=== PATIENT | female | born 1975 | race Caucasian/White ===

== ENCOUNTER 2016-11-14 20:45 | Emergency (ER) | payer OTHER ==
[~2016-11-14] VITALS: Ht 172.7 cm; Wt 112.9 kg
[~2016-11-14 20:45] MED LIST: CARAFATE1 G1 PO; GUAFENESIN400 MG PO; KETOCONAZOLE15 GM TOP; MEDROL DOSEPAK1 PAC PO; MUCINEX600 M1 PO; NASONEX0.05 MG/Ac NAS; PREDNISONE20 M1 PO; PROVENTIL HFA6.7 GM INH; TESSALON PERLE100 MG PO; TRAMADOL50 MG PO; VIBRAMYCIN100 MG PO
[2016-11-14 21:15] VITALS: BP 119/79
[2016-11-14 21:19] LABS: ABSOLUTE BASOPHIL COUNT 0 /CUMM (0.0-0.2); ABSOLUTE EOSINOPHIL COUNT 0.1 /CUMM (0.0-0.7); ABSOLUTE LYMPH COUNT 2.8 /CUMM (1.2-3.4); ABSOLUTE MONOCYTE COUNT 0.7 /CUMM (0.10-0.60); BASOPHIL % 0.3 % (0.0-2.0); EOSINOPHIL % 1.4 % (0-5); GRANULOCYTE % 57.9 % (42.2-75.2); HEMATOCRIT 40.3 % (37-47); MEAN CORPUSCULAR HGB 29.8 PG (27.0-31.0); MEAN CORPUSCULAR HGB CONC 33.3 G/DL (33.0-37.0); MEAN CORPUSCULAR VOLUME 89.3 FL (81.0-99.0); MEAN PLATELET VOLUME 8.1 FL (7.4-10.4); PLATELET COUNT 201 /CUMM (130-400); RBC DISTRIBUTION WIDTH 13.4 % (11.5-14.5); RED BLOOD CELL CT 4.51 /CUMM (4.20-5.40); WHITE BLOOD CELL COUNT 8.7 /CUMM (4.8-10.8)
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
--- NOTE | 2016-11-14 23:08 | RADIOLOGY REPORT ---
EXAMINATION: XR LUMBOSACRAL SPINE CLINICAL INFORMATION: Lower back pain following fall 2 weeks ago. Persistent right-sided paralumbar pain. COMPARISON: None. TECHNIQUE: AP and lateral views of the lumbar spine as well as AP and lateral views of the lumbosacral junction. FINDINGS: There are 5 nonrib-bearing lumbar vertebral bodies. There is moderate to severe multilevel degenerative disc disease and facet arthrosis of the lumbar spine without visible lumbar spine fracture or subluxation. Degenerative changes are most significant at L4-L5 and L5-S1. Lumbar spine alignment appears grossly maintained. IMPRESSION: No visible lumbar spine fracture or subluxation. Lumbar spine alignment appears grossly maintained. There is moderate to severe degenerative disc disease and facet arthrosis of the lumbar spine. If clinical symptoms persist, consider correlation with a dedicated CT of the lumbar spine.
[2016-11-14] MEDS ORDERED: CYCLOBENZAPRINE10 M1 PO (23:23)
[2016-11-14] MEDS ORDERED: IBUPROFEN800 M1 PO (23:23)
[2016-11-14] MEDS ORDERED: MEDROL4 M2 PO (23:23)
== END 2016-11-14 23:33 ==
LOC: ERH 20:45
PROVIDERS: Emergency Medicine
DX: M54.5 Low back pain (principal)
CPT/HCPCS: 72110; 81003; 81025; 93005; 93010; 96372; J1885

== ENCOUNTER 2018-04-17 09:19 | Emergency (ER) | payer OTHER ==
[~2018-04-17 09:19] MED LIST changes: +BACLOFEN10 M1 PO; +CHERATUSSIN AC118 M1 PO; +CYCLOBENZAPRINE10 M1 PO; +DIFLUCAN200 M1 PO; +IBUPROFEN600 M1 PO; +IBUPROFEN800 M1 PO; +MEDROL4 M2 PO; +MOBIC15 M1 PO; +VICODIN 5-3001 EACH PO; +ZITHROMAX250 M2 PO
[2018-04-17 09:22] VITALS: BP 140/88
--- NOTE | 2018-04-17 10:39 | ED INFLUENZA/URI COMPLAINT ---
History of Present Illness General Chief Complaint: Upper Respiratory Sx/Fever Stated Complaint: URI Source: patient Exam Limitations: no limitations Vital Signs & Intake/Output Vital Signs & Intake/Output Vital Signs Date Time Temp Pulse Resp B/P B/P Pulse O2 O2 Flow FiO2 Mean Ox Delivery Rate 04/17 1118 98 Room Air 04/17 1100 98 04/17 0922 97.8 88 18 140/88 95 Room Air Allergies Coded Allergies: Penicillins (Severe, anaphylaxis 02/07/18) levofloxacin (From LEVAQUIN) (Severe, RASH 02/07/18) moxifloxacin (From AVELOX) (Severe, RASH 02/07/18) promethazine (From PHENERGAN) (Severe, APHASIA 02/07/18) Reconcile Medications Albuterol Sulfate (Proventil Hfa) 90 MCG HFA.AER.AD 2 PUF INH Q4 cough Azithromycin (Zithromax) 250 MG TABLET 1 DP PO AD OTHER 2 the first day followed by 1 for days 2-5 Baclofen 10 MG TABLET 1 TAB PO TIDPRN PRN muscle spasm/strain Benzonatate 200 MG CAPSULE 1 CAP PO TIDPRN cough Codeine Phosphate/Guaifenesi (Cheratussin AC Syrup) 10 MG-100 MG/5 ML LIQUID 5 -10 ML PO Q6 PRN COUGH Cyclobenzaprine HCl 10 MG TABLET 1 TAB PO QPM PRN SPASM DO NOT DRIVE WITH THIS MEDICATION Doxycycline Hyclate 100 MG CAPSULE 1 CAP PO BID bronchitis Doxycycline Hyclate (Vibramycin) 100 MG CAPSULE 1 CAP PO BID cellulitis Fluconazole (Diflucan) 200 MG TABLET 1 TAB PO DAILY candidiasis Start after completion of antibiotics Hydrocodone/Acetaminophen (Vicodin 5-300 MG Tablet) 5 MG-300 MG TABLET 1 TAB PO BID PRN BREAKTHROUGH PAIN Ibuprofen 600 MG TABLET 1 TAB PO Q6P PRN pain with food Meloxicam (Mobic) 15 MG TABLET 1 TAB PO DAILY PRN PAIN Methylprednisolone. (Medrol) 4 MG TAB.DS.PK 1 DP PO AD INFLAMMATION 6 on day 1 then reduce by one tablet daily until gone Triage Note: PT TO ED WITH URI. STATES THAT SHE IS HAVING CONGESTION AND COUGH WITH GREEN AND WHITE MUCUS. DENIES ANY CP, DENIES ANY SOB. FEELS PRESSURE IN HER HEAD WELL. HX OF HYSTERECTOMY. Triage Nurses Notes Reviewed? yes Onset: Abrupt Duration: day(s): : No Patient currently breastfeeds: No HPI: Pt is a 43 y/o F PMHx asthma presenting with postnasal drip and a cough x 3 days. Pt states symptoms started 3 days ago with nasal congestion, headache, sore throat. Pt took zyrtec with some relief. Pt states that last night a cough started that is productive of phlegm. Pt has been using her albutorol inhaler frequently since. Pt states that she has been smoking 1/2 PPD since she was an adolescent. Pt admits to SOB, denies fevers, chills, diaphoresis, cp, dizziness. (Greg Dueñas) Past History Travel History Traveled to [place] past 21 day No Medical History Any Pertinent Medical History? 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 No (Greg Dueñas) Review of Systems Review of Systems Constitutional: Denies: see HPI. EENTM: Reports: see HPI. Respiratory: Reports: see HPI. Cardiovascular: Denies: see HPI. GI: Reports: no symptoms. Genitourinary: Reports: no symptoms. Musculoskeletal: Reports: no symptoms. Skin: Reports: no symptoms. Neurological/Psychological: Reports: no symptoms. Hematologic/Endocrine: Reports: no symptoms. Immunologic/Allergic: Reports: no symptoms. All Other Systems: Reviewed and Negative (Greg Dueñas) Physical Exam Physical Exam General Appearance: well developed/nourished, no apparent distress, alert, awake Head: atraumatic, normal appearance Eyes: Bilateral: PERRL, other (scleral injection, lacrimation). Ears, Nose, Throat: moist mucous membrane, Tympanic normal Neck: normal inspection, supple, full range of motion, No LAD Respiratory: no respiratory distress, quiet respiration, decreased breath sounds Cardiovascular: regular rate/rhythm, NMRG Extremities: normal range of motion Neurologic/Psych: awake, alert Skin: intact, normal color, warm/dry Core Measures Sepsis Present: No Sepsis Focused Exam Completed? Yes (Greg Dueñas) Progress Differential Diagnosis: pneumonia, pharyngitis, sinusitis, Bronchitis Plan of Care: Orders Procedure Date/time Status AEROSOL (GEN) 04/17 110 Complete Initial ED EKG: none (Greg Dueñas) Departure Departure Disposition: HOME OR SELF CARE Condition: Stable Clinical Impression Primary Impression: Bronchitis Referrals: Jamie SUAREZ,Petar Marshall (PCP/Family) Additional Instructions: Taking doxycycline, albuterol, Tessalon Perles as prescribed. Follow-up with her PCP. Return if any other concerns worsening symptoms. Please go over all results of today's visit with your primary care doctor. Contact your primary care doctor to let them know you were here in the emergency room. There may be nonspecific findings which may not be related to your visit today here in the emergency room but may require further evaluation and chronic monitoring by your primary care doctor. If you had a laceration today the chance of foreign body always remains. You should follow-up with your primary care doctor for recheck in 3-5 days for a wound check. If you had an x-ray done there is a chance that a fracture could have been missed on initial read and you should follow-up with your primary care doctor for repeat x-rays if symptoms persist. If your blood pressure was elevated here in the emergency room please have rechecked by [facility] primary care doctor within the next 48. If you were prescribed a narcotic here in the emergency room or any type of controlled substances you're not allowed to drive while taking this medication or operate any type of heavy machinery. Narcotics can make you feel lightheaded dizziness nausea and can cause constipation. 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 Thank you for choosing [facility] emergency room. Please return to the emergency room immediately if you have any other concerns worsening of symptoms. Departure Forms: Customer Survey General Discharge Information Prescriptions: Current Visit Scripts Doxycycline Hyclate 1 CAP PO BID #20 CAP Albuterol Sulfate (Proventil Hfa) 2 PUF INH Q4 #1 INHAL Benzonatate 1 CAP PO TIDPRN #30 CAP Comments 04/17/2018 12:31:26 PM Symptoms are most consistent with bronchitis. Patient treated symptomatically. Return if any other concerns. (Greg Dueñas) PA/AIRCRAFT PAINTER APPRENTICE Co-Sign Statement Statement: ED Attending supervision documentation- [] I saw and evaluated the patient. I have also reviewed all the pertinent lab results and diagnostic results. I agree with the findings and the plan of care as documented in the PA's/AIRCRAFT PAINTER APPRENTICE's documentation. x I have reviewed the ED Record and agree with the PA's/AIRCRAFT PAINTER APPRENTICE's documentation. [] Additions or exceptions (if any) to the PAs/AIRCRAFT PAINTER APPRENTICE's note and plan are summarized below: [] (Guanako SUAREZ,Blayne)
[2018-04-17] MEDS ORDERED: BENZONATATE200 M1 PO (10:59)
[2018-04-17] MEDS ORDERED: DOXYCYCLINE HY100 M2 PO (10:59)
[2018-04-17] MEDS ORDERED: PROVENTIL HFA6.7 GM INH (10:59)
== END 2018-04-17 11:19 ==
LOC: ERH 09:19
DX: J40 Bronchitis, not specified as acute or chronic (principal); R05 Cough; R51 Headache; F17.200 Nicotine dependence, unspecified, uncomplicated; R06.02 Shortness of breath; J45.909 Unspecified asthma, uncomplicated; E11.9 Type 2 diabetes mellitus without complications
CPT/HCPCS: 1263